=== PATIENT | female | born 1985 | race African-American/Black ===

== ENCOUNTER 2018-01-04 15:39 | Emergency (ER) | payer MEDICAID, OTHER ==
[~2018-01-04] VITALS: Ht 162.6 cm; Wt 82.2 kg
[2018-01-04] MEDS ORDERED: TETanus/Pertussis (Acell)/Diphther VAC/PF (Tdap-Adult) 0.5ml syringe IMVAC ONE (18:10)
[2018-01-04] MEDS ORDERED: ibuprofen tablet 400 MG TABLET PO ONE (18:10)
[2018-01-04] MEDS ORDERED: amox tr/potassium clavulanate 875/125mg TAB PO ONE (18:10)
[2018-01-04] MEDS ORDERED: HYDROcodone/acetaminophen 10/325mg tab PO ONE (19:10)
[2018-01-04] MEDS ORDERED: ONDA4TAB12 PO (19:51)
[2018-01-04] MEDS ORDERED: AMOX-580 PO (19:51)
[2018-01-04] MEDS ORDERED: HYDR-3965 PO (19:51)
[2018-01-04] MEDS ORDERED: IBUP-1986 PO (19:51)
[2018-01-04 20:43] VITALS: BP 152/113
== END 2018-01-04 21:19 | disposition home or self-care (01) ==
LOC: ER 15:39
DX: S60.221A Contusion of right hand, initial encounter (principal); L02.511 Cutaneous abscess of right hand; I10 Essential (primary) hypertension; Z56.0 Unemployment, unspecified; W54.0XXA Bitten by dog, initial encounter; Y93.89 Activity, other specified; Y92.89 Other specified places as the place of occurrence of the external cause; Y99.8 Other external cause status
CPT/HCPCS: 73130; 90471; 90715; 99284; 99285

== ENCOUNTER 2018-09-16 18:31 | Emergency (ER) | payer MEDICAID, OTHER ==
[~2018-09-16] VITALS: Ht 162.6 cm; Wt 82.6 kg
[~2018-09-16 18:31] MED LIST: IBUP-1986 PO; ONDA4TAB12 PO
[2018-09-16 18:53] VITALS: BP 163/119
[2018-09-16] MEDS ORDERED: ketorolac trometh. 30mg/ml inj. IM ONE (23:55)
== END 2018-09-17 00:01 | disposition home or self-care (01) ==
LOC: ER 18:32
DX: M54.5 Low back pain (principal); I10 Essential (primary) hypertension; G89.29 Other chronic pain; F15.90 Other stimulant use, unspecified, uncomplicated; Z56.0 Unemployment, unspecified
CPT/HCPCS: 96372; 99283; J1885

== ENCOUNTER 2019-02-10 14:14 | Emergency (ER) | payer OTHER ==
[~2019-02-10] VITALS: Ht 162.6 cm; Wt 81.0 kg
[2019-02-10] MEDS ORDERED: morphine 4 MG/ML inj SYRINge IV ONE (14:35)
[2019-02-10] MEDS ORDERED: metoclopramide 5 mg/ml inj IV ONE (14:35)
[2019-02-10] MEDS ORDERED: normal saline 1000ML IV soln IVB ONE (14:35)
[2019-02-10 15:05] LABS: BASOPHILS # (AUTO) 0.1 X10'3 (0-0.2); BASOPHILS % (AUTO) 0.4 % (0-1); EOSINOPHILS # (AUTO) 0.1 X10'3 (0-0.9); EOSINOPHILS % (AUTO) 0.7 % (0-6); HEMATOCRIT 37.2 % (35.0-45.0); HEMOGLOBIN 12.1 g/dl (12.0-16.0); LYMPHOCYTES # (AUTO) 1.4 X10'3 (1.1-4.8); LYMPHOCYTES % (AUTO) 10.8 % (21-51); MEAN CORPUSCULAR HEMOGLOBIN 27.7 PG (27.0-31.0); MEAN CORPUSCULAR HGB CONC 32.6 g/dL (33.0-36.5); MEAN CORPUSCULAR VOLUME 84.9 FL (78-98); MEAN PLATELET VOLUME 9.1 FL (7.4-10.4); MONOCYTES # (AUTO) 0.8 X10'3 (0-0.9); MONOCYTES % (AUTO) 6.2 % (2-12); NEUTROPHILS % (AUTO) 81.9 % (42-75); PLATELET COUNT 330 X10'3 (140-440); RED BLOOD COUNT 4.38 X10'6 (4.20-5.60); RED CELL DISTRIBUTION WIDTH 14.7 % (11.5-14.5); WHITE BLOOD COUNT 13.5 X10'3 (4.5-11.0)
[2019-02-10 15:13] LABS: ALANINE AMINOTRANSFERASE 22 U/L (12-78); ALBUMIN 3.9 G/DL (3.4-5.0); ALBUMIN/GLOBULIN RATIO 0.9 (1.1-1.5); ALKALINE PHOSPHATASE 118 IU/L (46-116); ANION GAP 9 (8-16); ASPARTATE AMINO TRANSFERASE 14 U/L (10-37); BILIRUBIN,TOTAL 0.3 MG/DL (0.1-1.0); BLOOD UREA NITROGEN 8 MG/DL (7-18); BUN/CREATININE RATIO 7.2 (6.6-38.0); CALCIUM 9.3 MG/DL (8.5-10.1); CHLORIDE 103 MMOL/L (99-107); CREATININE 1.11 MG/DL (0.40-0.90); GLUCOSE 116 MG/DL (70-104); LIPASE 100 U/L (73-393); POTASSIUM 3.7 MMOL/L (3.5-5.1); SODIUM 139 MMOL/L (135-145); TOTAL CARBON DIOXIDE 26.9 MMOL/L (24-32); TOTAL PROTEIN 8.3 G/DL (6.4-8.2); eGFR 68 ML/MIN
[2019-02-10 16:19] LABS: URINE HCG NEGATIVE (NEG)
[2019-02-10 16:24] LABS: CLARITY,URINE CLEAR (Clear); COLOR,URINE YELLOW (Yellow); GLUCOSE, URINE NEGATIVE (Neg); KETONES,URINE NEGATIVE (Neg); LEUKOCYTE ESTERASE ,URINE NEGATIVE (Neg); NITRITES, URINE NEGATIVE (Neg); OCCULT BLOOD,URINE TRACE-INTACT (Neg); PH,URINE 5.5 (4.8-8.0); PROTEIN,URINE NEGATIVE (Neg); UROBILINOGEN,URINE 0.2 E.U/dL (0.2-1.0)
[2019-02-10 16:25] LABS: UA COLLECTION TYPE CLN CATCH MIDSTREAM
[2019-02-10 16:30] LABS: BACTERIA,URINE FEW /HPF (Neg); MUCUS STRANDS NONE SEEN /LPF (Neg); RBC,URINE 0-2 /HPF (0-2); SQUAMOUS EPITHELIAL CELL,UR FEW /LPF (FEW); WBC,URINE NONE SEEN /HPF (0-4)
[2019-02-10] MEDS ORDERED: normal saline 1000ml 1,000 ML IV ONE (16:30)
--- NOTE | 2019-02-10 17:25 | NUR ---
US HAS BEEN IN AND DONE THE TEST ON THE PT
[2019-02-10 18:47] VITALS: BP 144/98
== END 2019-02-10 18:49 | disposition home or self-care (01) ==
LOC: ER 14:14 → EEVIPCON 14:14 → ER 18:49
DX: R10.32 Left lower quadrant pain (principal); R11.2 Nausea with vomiting, unspecified; I10 Essential (primary) hypertension; G89.29 Other chronic pain; F15.90 Other stimulant use, unspecified, uncomplicated; Z86.73 Personal history of transient ischemic attack (TIA), and cerebral infarction without residual deficits; Z56.0 Unemployment, unspecified; Z79.899 Other long term (current) drug therapy
CPT/HCPCS: 36415; 71045; 74176; 76856; 80053; 81001; 81025; 83690; 85025; 85610; 87491; 87591; 96361; 96374; 96375; 99284; J2270; J2765; J7030